=== PATIENT | female | born 2000 | race Asian ===

== ENCOUNTER 2019-06-10 15:31 | Inpatient (IN) ==
[2019-06-10 16:54] LABS: Basophils # (auto) 0.02 K/uL (0-0.2); Basophils % (auto) 0.4 %; Eosinophils # (auto) 0.04 K/uL (0-0.5); Eosinophils % (auto) 0.7 %; Hematocrit (blood only) 39.7 % (37-47); Hemoglobin 13.3 g/dL (12.0-16.0); Immature Granulocytes # (auto) 0.01 K/uL (0.00-0.02); Immature Granulocytes % (auto) 0.2 %; Lymphocytes # (auto) 1.88 K/uL (1.2-3.4); Lymphocytes % (auto) 33.5 %; Mean Corpuscular Hgb Conc 33.5 g/dL (32-36); Mean Corpuscular Volume 86.5 fL (80-100); Mean Platelet Volume 9.5 fL (7.4-10.4); Monocytes # (auto) 0.39 K/uL (0.11-0.59); Monocytes % (auto) 6.9 %; Neutrophils # (auto) 3.28 K/uL (1.4-6.5); Neutrophils % (auto) 58.3 %; Platelet Count 246 K/uL (130-400); RDW Coefficient of Variation 13.6 % (11.5-14.5); RDW Standard Deviation 42.9 fL (36.4-46.3); Red Blood Count 4.59 M/uL (4.2-5.4); White Blood Count 5.62 K/uL (4.8-10.8)
[2019-06-10 17:18] LABS: Albumin Level 3.9 gm/dl (3.4-5.0); Calcium 9.2 mg/dl (8.5-10.1); Creatinine Clr Calc Pharmacy 112.8 ml/min; Est GFR (African American) 127.7; Est GFR (Non-African American) 110.2
[2019-06-10 17:21] LABS: Acetaminophen < 2 ug/ml (10-30); Salicylate < 1.7 mg/dl (2.8-20)
[2019-06-10 17:29] LABS: Bilirubin,Total 0.3 mg/dl (0.2-1); Globulin 3.9 gm/dl (2.5-4.0); Thyroid Stimulating Hormone 0.647 uIu/ml (0.300-4.500); Total Protein 7.8 gm/dl (6.4-8.2)
[2019-06-10 17:52] LABS: Pregnancy Test, Serum Negative (Negative)
--- NOTE | 2019-06-10 17:55 | Emergency Department Note ---
Entered by Damian Harrell acting as a scribe for History of Present Illness General Chief complaint: Mental Health Evaluation Stated complaint: MHID Time Seen by Provider: 06/10/19 15:39 Source: patient and other (case making machine operator) Limitations: no limitations History of Present Illness Onset (ago): hour(s) ([employer]) Location: head Severity: similar to prior episodes Pain Consistency: + constant Quality: + other (suicidal ideations) Associated symptoms: + denies other symptoms (recent illnesses, injuries) The patient is a 18 y/o female who presents to the ED for a mental health evaluation. The case making machine operator notes the patient was referred to the ED by [facility] [employer]. The case making machine operator states CAPS states the patient feels depressed and has had suicidal ideations. The case making machine operator states CAPS states the patient tried to commit suicide in high school by taking a bunch of Advil. The case making machine operator states CAPS states the patient had a plan to cut herself. The patient states she has a history of anxiety and depression but states it is not diagnosed. She states her family is in [facility] and notes she has not seen them in over 4 months. She states she has never talked to a therapist in the past. She states she has used ecstasy, LSD, cocaine, and marijuana. She states she has recently used cocaine and marijuana and states she has used them socially. She states she drinks alcohol socially. She notes she has smoked tobacco but states she has not recently. She states she uses drugs whenever she goes to festivals or big events. She states her menstrual cycle was a week late recently, but she states she took a test and it was negative. The patient denies having recent injuries and illnesses. Home Medications Home Medications Medication Instructions Recorded Confirmed Type No Known Home Medications 06/10/19 06/10/19 History Allergies Allergy/AdvReac Type Severity Reaction Status Date / Time No Known Allergies Allergy Unverified 06/10/19 16:26 Past Med/Surg History Medical History Anxiety Depression Family History Other Family history non-contributory Social History Preferred Language: Romansh Communication Ability: Effective Multimedia Manager Required: No Beliefs That Will Affect Care: None Feels Safe at Home: Yes Smoking Status: Current some day smoker Tobacco Type: cigarettes and e- cigarettes ; Hx Substance Use: Yes substance use type: marijuana, crack/cocaine, club/millinery designer drugs and other Substance Use Type Other:: LSD Review of Systems See HPI for pertinent positives & negatives. and A total of 10 systems reviewed and were otherwise negative Physical Exam Vital Signs Vital Signs - 24 hr 06/10/19 16:00 Temperature 36.9 C Temperature Source Oral Pulse Rate 82 Pulse Rhythm Regular Pulse Strength Normal Respiratory Rate 16 Respiratory Effort / Characteristics Non-Labored Spontaneous Respiratory Depth Normal Respiratory Pattern Regular Blood Pressure 106/63 Blood Pressure Mean 77 Blood Pressure Position Sitting Pulse Oximetry 99 Oxygen Delivery Method Room Air Sepsis Recent Fever Within 48 Hours No Sepsis New/Unexplained Change in Mental Status No Sepsis Action Taken by Nursing No Action Required GENERAL: alert, well appearing, well nourished, no distress, non-toxic EYE EXAM: normal conjunctiva, PERRL and EOM's grossly intact OROPHARYNX: no exudate, no erythema, lips, buccal mucosa, and tongue normal and mucous membranes are moist NECK: supple, no nuchal rigidity, no adenopathy, non-tender LUNGS: Clear to auscultation. Normal chest wall mechanics, no w/r/r HEART: no murmurs, S1 normal and S2 normal ABDOMEN: abdomen soft, non-tender, normo-active bowel sounds, no masses, no rebound or guarding. BACK: Back is symmetrical on inspection and there is no deformity, no midline tenderness, no CVA tenderness. SKIN: no rashes and no bruising UPPER EXTREMITIES: upper extremities are grossly normal. FROM, nml pulses b/l. LOWER EXTREMITIES: No pitting edema. FROM, nml pulses b/l. NEURO EXAM: Normal sensorium, cranial nerves II-XII grossly intact, normal speech, no gross weakness of arms, no gross weakness of legs. PSYCH: Flat affect. Depression, anxiety, suicidal ideation. No hallucinations. Course Course 1557: Past medical records reviewed. The patient was evaluated in room A5. A complete history and physical exam was performed. 1735: Patient seen and evaluated by [facility] psychiatric case making machine operator. Patient willing to be admitted voluntarily. They will make referrals for disposition. 1800: The patient was signed out to Dr. Cardozo - Emergency Medicine. He will further manage the care of the patient. Administered Medications Hydroxyzine HCl (Vistaril) 50 mg PO HSZ PRN PRN Reason: Insomnia Stop: 07/10/19 20:57 Last Admin: 06/11/19 00:35 Dose: 50 mg Documented by: [id number] Discontinued Medications Escitalopram Oxalate (Lexapro Tab) 5 mg PO ONE ONE Stop: 06/11/19 10:42 Last Admin: 06/11/19 10:56 Dose: 5 mg Documented by: [id number] Medical Decision Making Differential Diagnosis Differential diagnoses considered include mood disorder, infection, hypoglycemia, electrolyte abnormalities, cardiac sources, intracerebral event, toxicologic, neurologic, as well as others. Medical Records Attestation: I reviewed the patient's medical records. Home Medications Current Medication List: was personally reviewed by me Laboratory Data Attestation: I reviewed the patient's lab results. Result diagrams: 06/10/19 16:41 06/10/19 16:41 Lab Results 06/10/19 06/10/19 06/10/19 Range/Units 16:41 16:41 16:41 WBC 5.62 (4.8-10.8) K/uL RBC 4.59 (4.2-5.4) M/uL Hgb 13.3 (12.0-16.0) g/dL Hct 39.7 (37-47) % MCV 86.5 (80-100) fL MCH 29.0 (25-34) pg MCHC 33.5 (32-36) g/dL RDW Std Deviation 42.9 (36.4-46.3) fL RDW Coeff of Radha 13.6 (11.5-14.5) % Plt Count 246 (130-400) K/uL MPV 9.5 (7.4-10.4) fL Immature Gran % (Auto) 0.2 % Neut % (Auto) 58.3 % Lymph % (Auto) 33.5 % Anderson % (Auto) 6.9 % Eos % (Auto) 0.7 % Baso % (Auto) 0.4 % Immature Gran # (Auto) 0.01 (0.00-0.02) K/uL Neut # (Auto) 3.28 (1.4-6.5) K/uL Lymph # (Auto) 1.88 (1.2-3.4) K/uL Anderson # (Auto) 0.39 (0.11-0.59) K/uL Eos # (Auto) 0.04 (0-0.5) K/uL Baso # (Auto) 0.02 (0-0.2) K/uL Sodium 137 (136-145) mmol/L Potassium 4.0 (3.5-5.1) mmol/L Chloride 106 (98-107) mmol/L Carbon Dioxide 27 (21-32) mmol/L Anion Gap 4.0 (3-11) BUN 14 (7-18) mg/dl Creatinine 0.78 (0.6-1.2) mg/dl Est Cr Clr Drug Dosing 112.8 ml/min Est GFR ( Amer) 127.7 Est GFR (Non-Af Amer) 110.2 BUN/Creatinine Ratio 18.0 (10-20) Glucose 82 (70-99) mg/dl Calcium 9.2 (8.5-10.1) mg/dl Total Bilirubin 0.3 (0.2-1) mg/dl AST 16 (15-37) U/L ALT 22 (12-78) U/L Alkaline Phosphatase 52 (45-117) U/L Total Protein 7.8 (6.4-8.2) gm/dl Albumin 3.9 (3.4-5.0) gm/dl Globulin 3.9 (2.5-4.0) gm/dl Albumin/Globulin Ratio 1.0 (0.9-2) 25-OH Vitamin D Total (20-100) ng/ml TSH 0.647 (0.300-4.500) uIu/ml HCG, Qual (Negative) Urine Color Urine Appearance (Clear) Urine pH (4.5-7.5) Ur Specific [place] (1.000-1.030) Urine Protein (Negative) Urine Glucose (UA) (Negative) Urine Ketones (Negative) Urine Blood (Negative) Urine Nitrite (Negative) Urine Bilirubin (Negative) Urine Urobilinogen (Negative) Ur Leukocyte Esterase (Negative) Salicylates < 1.7 L (2.8-20) mg/dl Urine Opiates Screen (Neg) Ur Methadone, Qual (Neg) Acetaminophen < 2 L (10-30) ug/ml Urine Barbiturates (Neg) Ur Phencyclidine (PCP) (Neg) U Amphetamin/Meth Scrn (Neg) MDMA (Ecstasy) Screen (Neg) U Benzodiazepines Scrn (Neg) Ur Cocaine Metabolite (Neg) U Marijuana (THC) Screen (Neg) Ethyl Alcohol mg/dL (0-3) mg/dl 06/10/19 06/10/19 06/10/19 Range/Units 16:41 16:41 16:41 WBC (4.8-10.8) K/uL RBC (4.2-5.4) M/uL Hgb (12.0-16.0) g/dL Hct (37-47) % MCV (80-100) fL MCH (25-34) pg MCHC (32-36) g/dL RDW Std Deviation (36.4-46.3) fL RDW Coeff of Radha (11.5-14.5) % Plt Count (130-400) K/uL MPV (7.4-10.4) fL Immature Gran % (Auto) % Neut % (Auto) % Lymph % (Auto) % Anderson % (Auto) % Eos % (Auto) % Baso % (Auto) % Immature Gran # (Auto) (0.00-0.02) K/uL Neut # (Auto) (1.4-6.5) K/uL Lymph # (Auto) (1.2-3.4) K/uL Anderson # (Auto) (0.11-0.59) K/uL Eos # (Auto) (0-0.5) K/uL Baso # (Auto) (0-0.2) K/uL Sodium (136-145) mmol/L Potassium (3.5-5.1) mmol/L Chloride (98-107) mmol/L Carbon Dioxide (21-32) mmol/L Anion Gap (3-11) BUN (7-18) mg/dl Creatinine (0.6-1.2) mg/dl Est Cr Clr Drug Dosing ml/min Est GFR ( Amer) Est GFR (Non-Af Amer) BUN/Creatinine Ratio (10-20) Glucose (70-99) mg/dl Calcium (8.5-10.1) mg/dl Total Bilirubin (0.2-1) mg/dl AST (15-37) U/L ALT (12-78) U/L Alkaline Phosphatase (45-117) U/L Total Protein (6.4-8.2) gm/dl Albumin (3.4-5.0) gm/dl Globulin (2.5-4.0) gm/dl Albumin/Globulin Ratio (0.9-2) 25-OH Vitamin D Total 23.5 (20-100) ng/ml TSH (0.300-4.500) uIu/ml HCG, Qual Negative (Negative) Urine Color Urine Appearance (Clear) Urine pH (4.5-7.5) Ur Specific [place] (1.000-1.030) Urine Protein (Negative) Urine Glucose (UA) (Negative) Urine Ketones (Negative) Urine Blood (Negative) Urine Nitrite (Negative) Urine Bilirubin (Negative) Urine Urobilinogen (Negative) Ur Leukocyte Esterase (Negative) Salicylates (2.8-20) mg/dl Urine Opiates Screen (Neg) Ur Methadone, Qual (Neg) Acetaminophen (10-30) ug/ml Urine Barbiturates (Neg) Ur Phencyclidine (PCP) (Neg) U Amphetamin/Meth Scrn (Neg) MDMA (Ecstasy) Screen (Neg) U Benzodiazepines Scrn (Neg) Ur Cocaine Metabolite (Neg) U Marijuana (THC) Screen (Neg) Ethyl Alcohol mg/dL < 3.0 (0-3) mg/dl 06/10/19 06/10/19 Range/Units 17:24 17:24 WBC (4.8-10.8) K/uL RBC (4.2-5.4) M/uL Hgb (12.0-16.0) g/dL Hct (37-47) % MCV (80-100) fL MCH (25-34) pg MCHC (32-36) g/dL RDW Std Deviation (36.4-46.3) fL RDW Coeff of Radha (11.5-14.5) % Plt Count (130-400) K/uL MPV (7.4-10.4) fL Immature Gran % (Auto) % Neut % (Auto) % Lymph % (Auto) % Anderson % (Auto) % Eos % (Auto) % Baso % (Auto) % Immature Gran # (Auto) (0.00-0.02) K/uL Neut # (Auto) (1.4-6.5) K/uL Lymph # (Auto) (1.2-3.4) K/uL Anderson # (Auto) (0.11-0.59) K/uL Eos # (Auto) (0-0.5) K/uL Baso # (Auto) (0-0.2) K/uL Sodium (136-145) mmol/L Potassium (3.5-5.1) mmol/L Chloride (98-107) mmol/L Carbon Dioxide (21-32) mmol/L Anion Gap (3-11) BUN (7-18) mg/dl Creatinine (0.6-1.2) mg/dl Est Cr Clr Drug Dosing ml/min Est GFR ( Amer) Est GFR (Non-Af Amer) BUN/Creatinine Ratio (10-20) Glucose (70-99) mg/dl Calcium (8.5-10.1) mg/dl Total Bilirubin (0.2-1) mg/dl AST (15-37) U/L ALT (12-78) U/L Alkaline Phosphatase (45-117) U/L Total Protein (6.4-8.2) gm/dl Albumin (3.4-5.0) gm/dl Globulin (2.5-4.0) gm/dl Albumin/Globulin Ratio (0.9-2) 25-OH Vitamin D Total (20-100) ng/ml TSH (0.300-4.500) uIu/ml HCG, Qual (Negative) Urine Color Yellow Urine Appearance Clear (Clear) Urine pH 6.0 (4.5-7.5) Ur Specific [place] 1.010 (1.000-1.030) Urine Protein Negative (Negative) Urine Glucose (UA) Negative (Negative) Urine Ketones Negative (Negative) Urine Blood Negative (Negative) Urine Nitrite Negative (Negative) Urine Bilirubin Negative (Negative) Urine Urobilinogen Negative (Negative) Ur Leukocyte Esterase Negative (Negative) Salicylates (2.8-20) mg/dl Urine Opiates Screen Neg (Neg) Ur Methadone, Qual Neg (Neg) Acetaminophen (10-30) ug/ml Urine Barbiturates Neg (Neg) Ur Phencyclidine (PCP) Neg (Neg) U Amphetamin/Meth Scrn Neg (Neg) MDMA (Ecstasy) Screen Neg (Neg) U Benzodiazepines Scrn Neg (Neg) Ur Cocaine Metabolite Neg (Neg) U Marijuana (THC) Screen Neg (Neg) Ethyl Alcohol mg/dL (0-3) mg/dl Blood Pressure Blood Pressure Findings: Normal blood pressure Blood Pressure Disposition: did not require urgent referral MDM Narrative Pt signed out awaiting disposition. Pt here voluntarily and I feel would benefit from inpatient psych treatment at this time. Pt with no close support or established resources. Impression & Plan Depression, Anxiety, Suicidal ideation, Substance abuse Discharge Plan Visit Data *Final* Discharge Date/Time: 06/10/19 20:43 Chief Complaint: Mental Health Evaluation Stated Complaint: MHID ED Provider: Presley Cardozo Discharge Problem: Depression, Anxiety, Suicidal ideation, Substance abuse Patient Disposition: Admitted As Inpatient Discharge Instructions Interventions: ED Discharge Assessment Last Done: 06/10/19 20:43 Discharge Problem: Depression Qualifiers: Depression Type: major depressive disorder Major depression recurrence: recurrent Active/Remission status: currently active Major depression episode severity: moderate Qualified Code(s): F33.1 - Major depressive disorder, recurrent, moderate The axelibe's documentation has been prepared under my direction and personally reviewed by me in its entirety. I confirm that the note above accurately reflects all work, treatment, procedures, and medical decision making performed by me.
[2019-06-10 18:23] LABS: Appearance Urine Clear (Clear); Bilirubin Urine Negative (Negative); Blood Urine Negative (Negative); Color Urine Yellow; Glucose Urine UA Negative (Negative); Ketones Urine Negative (Negative); Leukocyte Esterase Urine Negative (Negative); Nitrite Urine Negative (Negative); Protein Urine Negative (Negative); Urobilinogen Urine Negative (Negative)
[2019-06-10 18:44] LABS: Amphetamines+Metham, Urine Neg (Neg); Barbiturates, Urine Neg (Neg); Benzodiazepine, Urine Neg (Neg); Cocaine, Urine Neg (Neg); MDMA (Ecstacy), Urine Neg (Neg); Methadone, Urine Neg (Neg); Opiate, Urine Neg (Neg); Phencyclidine, Urine Neg (Neg)
--- NOTE | 2019-06-10 20:16 | Emergency Department Note ---
ED Visit Note Received patient in signout. History and physical verified by me. Patient has been admitted to [facility]. . : Depression Qualifiers: Depression Type: major depressive disorder Major depression recurrence: recurrent Active/Remission status: currently active Major depression episode severity: moderate Qualified Code(s): F33.1 - Major depressive disorder, recurrent, moderate
[2019-06-10] MEDS ORDERED: MAGNESIUM HYDROXIDE SUSP 30 ML UDC PO PRN (20:58)
[2019-06-10] MEDS ORDERED: ALUMINUM/MAGNESIUM SUSP 30 ML UDC PO PRN (20:58)
[2019-06-10] MEDS ORDERED: ACETAMINOPHEN 325 MG TAB PO PRN (20:58)
[2019-06-10] MEDS ORDERED: SODIUM CHLORIDE 0.65% NA SOLN 45 ML (OCEAN) PRN (20:58)
[2019-06-10] MEDS ORDERED: BISMUTH SUBSALICYLATE PER ML OMNICELL CHARGE PO PRN (20:58)
[2019-06-11] MEDS ORDERED: ESCITALOPRAM OXALATE 10 MG TAB PO ONE (10:41)
--- NOTE | 2019-06-11 13:02 | History & Physical ---
Date of Service June 11, 2019 Impression / Recommendations Impression 18 yo female with a history of SIB and impulsive suicidal gesture in high school (also some restricting and later bingeing around transition to college) presents with recurrent SI and recent SIB. Hospitalization was recommended given inability to safety plan and limited social supports locally given international student. (1) Depression: The patient was admitted to the [facility] ([facility] mental health unit) on q15 min checks (behavioral with suicide precautions) for safety. The patient will participate in group, recreational, and milieu therapies and will b e offered additional individual and family sessions as clinically appropriate. Risks/benefits/alternatives reviewed re: antidepressants for the treatment of depression. Discussion included but was not limited to FDA black box warnings re: suicidality. The patient agreed to a trial of Lexapro 5 mg today with plan to continue and/or titrate tomorrow based on tolerability. Active/Remission status: currently active Depression Type: major depressive disorder Major depression episode severity: moderate Major depression recurrence: recurrent Qualified Code(s): F33.1 - Major depressive disorder, recurrent, moderate Inventory Assets Strengths: intelligent, sought care at [facility] Needs: medication trial, family meeting Risk Factors Assessment Do You Have Access To A Gun?: No Previous Attempt; Didn't Tell Anyone: Yes Previous Psychiatric Hospitalization: No Protective Factors Assessment : No Employed: No Psychiatric History Identifying Data ATUL AYALA is a 18-year-old F, [employer] sophomore lives off campus, has a history of impulsive OD attempt in high school, and was admitted on 06/10/19 20:58 on a 201 voluntary commitment for SI and recent SIB. Chief Complaint "I didn't know how to talk to my parents about how I was feeling". History of Present Illness Reports intermittent depressive symptoms since high school, recurred on adjustment to college life and particularly worse since March. Having non- specific SI without a plan for several weeks, mood dropped lower following an argument with mother on the phone three days ago. At that time she made multiple horizontal (1-2 in) scratches on her left forearm (skin red but intact). She called [facility] for urgent assessment and on 2nd visit was referred to ED, police accompanied as standard procedure. She continues to expressed passive SI, appears depressed, endorses hopelessness and helplessness with regards to her mood symptoms and has very little support as parents are in [facility] and her boyfriend is in [place]. She did attend classes this week but feels symptoms impacted her performance last semester. Sleep and appetite sound relatively intact. She denies any periods of elevated or irritable mood that would suggest chichi. Past Psychiatric History Previous Psych History: none Current Psychiatric Diagnosis: MDD Outpatient Services: establishing at [facility] for therapy, scheduled for a psych eval with Dr. Messina next week. Previous Psych Admissions: none Do You Have Access To A Gun?: No History of Previous Suicide Attempt: Yes Describe Attempts in the Past: In high school - OD on Advil. Stated it was very impulsive, no treatme Past Medication Trials: none Past Head Trauma/Neuro History History of Concussion/Seizure: No Allergies Allergy/AdvReac Type Severity Reaction Status Date / Time No Known Allergies Allergy Unverified 06/10/19 16:26 Home Medications Home Medications Medication Instructions Recorded Confirmed Type No Known Home Medications 06/10/19 06/10/19 History Family History Family History of: None Alcohol History Hx of Alcohol Use Over the Past 12 Months: Yes AUDIT Total Score: 6 Smoking Use Have You Smoked or Used Tobacco Products in the Last 30 Days: Yes tobacco type: cigarettes and e-cigarettes Smoking Status: Current some day smoker Substance History Hx of Prescription Med Misuse Over the Past 12 Months: No Hx of Over the Counter Med Misuse Over the Past 12 Months: No Hx of Inhalent Misuse Over the Past 12 Months: No Hx of Organic Substance Use Over the Past 12 Months: Yes (MJ at a concert, denied regular use) Hx of Illegal Substances/Street Drug Use Over Past 12 Months: Yes (has used MMDA at a concert, denies regular use) Problems as a Result of Past Substance Use: None Identified Personal History Living Arrangements: Apartment Born In: [place] Childhood: only child, came to [facility] in high school (parents back and forth to [place] around that time), attended high school in [facility]. Highest Grade Completed: Some College Highest Grade Completed Comment: [employer] Sophomore - Psychology Employment Status: Student Marital Status: Single Number Of Children: 0 Beliefs That Will Affect Care: None Current Legal Problems: No Hx Legal Problems: No Hx Traumatic Life Events: No Patient History Medical History Anxiety Depression Family History Other Family history non-contributory Social History Preferred Language: Setswana Communication Ability: Effective Lead Performance Support Analyst Required: No Beliefs That Will Affect Care: None Feels Safe at Home: Yes Smoking Status: Current some day smoker Tobacco Type: cigarettes and e- cigarettes ; Hx Substance Use: Yes substance use type: marijuana, crack/cocaine, club/social media designer drugs and other Substance Use Type Other:: LSD Review of Systems Review of Systems: All systems reviewed & are unremarkable except as noted in HPI & below Physical Exam Psychiatric: A physical exam was performed in the ED by Dr. Stacy for the purposes of medical clearance. I accept that physical as correct and adequate for the purposes of the inpatient physical exam. Orientation: alert Apperance: appropriately dressed Eye Contact: good eye contact Motor Behavior: steady gait and station Speech: normal rate/rhythm/volume of speech Affect: + depressed affect Mood: + depressed mood Thought Process: goal directed thought process Thought Content: reality based without delusions passive SI, no intent or plan on unit Homicidal Thoughts: denies homicidal thoughts Hallucinations: no auditory hallucinations and no visual hallucinations Cognition: attention grossly intact and language grossly intact Estimated Intelligence: consistent with education level Insight: + limited insight Judgement: + limited judgement Vital Signs (Past 24 Hours): Last Vital Signs Temp 36.7 C 06/11/19 06:43 Pulse 78 06/11/19 06:44 Resp 18 06/11/19 06:43 BP 112/75 06/11/19 06:44 Pulse Ox 98 06/10/19 21:04 Results & Data Laboratory Results Laboratory Results - last 24 hr 06/10/19 06/10/19 06/10/19 16:41 16:41 16:41 WBC 5.62 RBC 4.59 Hgb 13.3 Hct 39.7 MCV 86.5 MCH 29.0 MCHC 33.5 RDW Std Deviation 42.9 RDW Coeff of Radha 13.6 Plt Count 246 MPV 9.5 Immature Gran % (Auto) 0.2 Neut % (Auto) 58.3 Lymph % (Auto) 33.5 Haines % (Auto) 6.9 Eos % (Auto) 0.7 Baso % (Auto) 0.4 Immature Gran # (Auto) 0.01 Neut # (Auto) 3.28 Lymph # (Auto) 1.88 Haines # (Auto) 0.39 Eos # (Auto) 0.04 Baso # (Auto) 0.02 Sodium 137 Potassium 4.0 Chloride 106 Carbon Dioxide 27 Anion Gap 4.0 BUN 14 Creatinine 0.78 Est Cr Clr Drug Dosing 112.8 Est GFR ( Amer) 127.7 Est GFR (Non-Af Amer) 110.2 BUN/Creatinine Ratio 18.0 Glucose 82 Calcium 9.2 Total Bilirubin 0.3 AST 16 ALT 22 Alkaline Phosphatase 52 Total Protein 7.8 Albumin 3.9 Globulin 3.9 Albumin/Globulin Ratio 1.0 TSH 0.647 HCG, Qual Urine Color Urine Appearance Urine pH Ur Specific [place] Urine Protein Urine Glucose (UA) Urine Ketones Urine Blood Urine Nitrite Urine Bilirubin Urine Urobilinogen Ur Leukocyte Esterase Salicylates < 1.7 L Urine Opiates Screen Ur Methadone, Qual Acetaminophen < 2 L Urine Barbiturates Ur Phencyclidine (PCP) U Amphetamin/Meth Scrn MDMA (Ecstasy) Screen U Benzodiazepines Scrn Ur Cocaine Metabolite U Marijuana (THC) Screen Ethyl Alcohol mg/dL 06/10/19 06/10/19 06/10/19 16:41 16:41 17:24 WBC RBC Hgb Hct MCV MCH MCHC RDW Std Deviation RDW Coeff of Radha Plt Count MPV Immature Gran % (Auto) Neut % (Auto) Lymph % (Auto) Haines % (Auto) Eos % (Auto) Baso % (Auto) Immature Gran # (Auto) Neut # (Auto) Lymph # (Auto) Haines # (Auto) Eos # (Auto) Baso # (Auto) Sodium Potassium Chloride Carbon Dioxide Anion Gap BUN Creatinine Est Cr Clr Drug Dosing Est GFR ( Amer) Est GFR (Non-Af Amer) BUN/Creatinine Ratio Glucose Calcium Total Bilirubin AST ALT Alkaline Phosphatase Total Protein Albumin Globulin Albumin/Globulin Ratio TSH HCG, Qual Negative Urine Color Urine Appearance Urine pH Ur Specific [place] Urine Protein Urine Glucose (UA) Urine Ketones Urine Blood Urine Nitrite Urine Bilirubin Urine Urobilinogen Ur Leukocyte Esterase Salicylates Urine Opiates Screen Neg Ur Methadone, Qual Neg Acetaminophen Urine Barbiturates Neg Ur Phencyclidine (PCP) Neg U Amphetamin/Meth Scrn Neg MDMA (Ecstasy) Screen Neg U Benzodiazepines Scrn Neg Ur Cocaine Metabolite Neg U Marijuana (THC) Screen Neg Ethyl Alcohol mg/dL < 3.0 06/10/19 17:24 WBC RBC Hgb Hct MCV MCH MCHC RDW Std Deviation RDW Coeff of Radha Plt Count MPV Immature Gran % (Auto) Neut % (Auto) Lymph % (Auto) Haines % (Auto) Eos % (Auto) Baso % (Auto) Immature Gran # (Auto) Neut # (Auto) Lymph # (Auto) Haines # (Auto) Eos # (Auto) Baso # (Auto) Sodium Potassium Chloride Carbon Dioxide Anion Gap BUN Creatinine Est Cr Clr Drug Dosing Est GFR ( Amer) Est GFR (Non-Af Amer) BUN/Creatinine Ratio Glucose Calcium Total Bilirubin AST ALT Alkaline Phosphatase Total Protein Albumin Globulin Albumin/Globulin Ratio TSH HCG, Qual Urine Color Yellow Urine Appearance Clear Urine pH 6.0 Ur Specific [place] 1.010 Urine Protein Negative Urine Glucose (UA) Negative Urine Ketones Negative Urine Blood Negative Urine Nitrite Negative Urine Bilirubin Negative Urine Urobilinogen Negative Ur Leukocyte Esterase Negative Salicylates Urine Opiates Screen Ur Methadone, Qual Acetaminophen Urine Barbiturates Ur Phencyclidine (PCP) U Amphetamin/Meth Scrn MDMA (Ecstasy) Screen U Benzodiazepines Scrn Ur Cocaine Metabolite U Marijuana (THC) Screen Ethyl Alcohol mg/dL Current Inpatient Medications Current Inpatient Medications: Current Inpatient Medications Acetaminophen (Tylenol) 650 mg PO Q4H PRN PRN Reason: Headache or Minor Fever Stop: 07/10/19 20:57 Al Hydrox/Mg Hydrox/Simethicone (Maalox) 30 ml PO Q4H PRN PRN Reason: GI Upset Stop: 07/10/19 20:57 Bismuth Subsalicylate (Kaopectate) 15 ml PO PRN PRN PRN Reason: Loose Stool Stop: 07/10/19 20:57 Hydroxyzine HCl (Vistaril) 50 mg PO HSZ PRN PRN Reason: Insomnia Stop: 07/10/19 20:57 Last Admin: 06/11/19 00:35 Dose: 50 mg Documented by: Hydroxyzine HCl (Vistaril) 25 mg PO Q4H PRN PRN Reason: Anxiety Stop: 07/10/19 20:57 Magnesium Hydroxide (Milk Of Magnesia) 30 ml PO DAILY PRN PRN Reason: Constipation Stop: 07/10/19 20:57 Sodium Chloride ([place] Nasal) 1 - 2 sprays NA PRN PRN PRN Reason: Nasal Dryness/Congestion Stop: 07/10/19 20:57
[2019-06-12] MEDS: ESCITALOPRAM OXALATE 10 MG TAB PO SCH (11:07)
--- NOTE | 2019-06-12 11:20 | Psychiatric Progress Note ---
Date of Service June 12, 2019 Impression / Recommendations Impression 18 yo female with a history of SIB and impulsive suicidal gesture in high school (also some restricting and later bingeing around transition to college) presents with recurrent SI and recent SIB. Hospitalization was recommended given inability to safety plan and limited social supports locally--improving, tolerating Lexapro (1) Depression: 06/11--The patient was admitted to the [facility] ([facility] mental health unit) on q15 min checks (behavioral with suicide precautions) for safety. The patient will participate in group, recreational, and milieu therapies and will be offered additional individual and family sessions as clinically appropriate. Risks/benefits/alternatives reviewed re: antidepressants for the treatment of depression. Discussion included but was not limited to FDA black box warnings re: suicidality. The patient agreed to a trial of Lexapro 5 mg today with plan to continue and/or titrate tomorrow based on tolerability. 06/12--titrate lexapro 10 mg. Inventory Assets Strengths: intelligent, sought care at [facility] Needs: medication trial, family meeting Risk Factors Assessment Do You Have Access To A Gun?: No Previous Attempt; Didn't Tell Anyone: Yes Previous Psychiatric Hospitalization: No Protective Factors Assessment : No Employed: No Interval History Chief Complaint "It was a mistake for me to come here". Review of Systems Sleep Information Total Hours of Sleep: 6 Meal Information Percent Meal Consumed - Breakfast: 100 Percent Meal Consumed - Lunch: 75 Percent Meal Consumed - Dinner: 100 Nutrition Comment: pt was sleeping Subjective Subjective Patient was seen & assessed and interval progress reviewed with nursing. States that she missed campbell and felt she was actually improving with social anxiety. Today confirms that she does not identify Hungarian and states she was born in [place], still says "moved around alot", including some period of time in [place]. Tolerated first dose of Lexapro and desires to continue. Now states that since childhood she had brief periods of feeling less responsive to things. Feels it's gotten worse during her depression. Denies that it is in response to stressors or around SIB so doesn't sound dissociative. Social anxiety is that she feels unsafe on some level with her own emotions if leaves her apartment to go to gym or class but fine once she is there. had family session by phone, feels parents were supportive. Requesting to leave soon and directed to safety plan. Physical Exam Psychiatric Orientation: alert Apperance: appropriately dressed Eye Contact: good eye contact Motor Behavior: steady gait and station Speech: normal rate/rhythm/volume of speech Affect: + depressed affect Mood: + depressed mood Thought Process: goal directed thought process Thought Content: reality based without delusions Suicidal Thoughts: denies suicidal thoughts Homicidal Thoughts: denies homicidal thoughts Hallucinations: no auditory hallucinations and no visual hallucinations Cognition: attention grossly intact and language grossly intact Estimated Intelligence: consistent with education level Insight: + limited insight Judgement: + limited judgement Vital Signs (Past 24 Hours) Last Vital Signs Temp 36.7 C 06/12/19 06:49 Pulse 82 06/12/19 06:50 Resp 18 06/12/19 06:49 BP 101/65 06/12/19 06:50 Pulse Ox 98 06/10/19 21:04 Results & Data Laboratory Results Laboratory Results - last 24 hr 06/10/19 16:41 25-OH Vitamin D Total 23.5 Current Inpatient Medications Current Inpatient Medications: Current Inpatient Medications Acetaminophen (Tylenol) 650 mg PO Q4H PRN PRN Reason: Headache or Minor Fever Stop: 07/10/19 20:57 Al Hydrox/Mg Hydrox/Simethicone (Maalox) 30 ml PO Q4H PRN PRN Reason: GI Upset Stop: 07/10/19 20:57 Bismuth Subsalicylate (Kaopectate) 15 ml PO PRN PRN PRN Reason: Loose Stool Stop: 07/10/19 20:57 Escitalopram Oxalate (Lexapro Tab) 10 mg PO QAM GILLIAN Stop: 07/12/19 10:14 Last Admin: 06/12/19 11:07 Dose: 10 mg Documented by: Hydroxyzine HCl (Vistaril) 50 mg PO HSZ PRN PRN Reason: Insomnia Stop: 07/10/19 20:57 Last Admin: 06/11/19 00:35 Dose: 50 mg Documented by: Hydroxyzine HCl (Vistaril) 25 mg PO Q4H PRN PRN Reason: Anxiety Stop: 07/10/19 20:57 Magnesium Hydroxide (Milk Of Magnesia) 30 ml PO DAILY PRN PRN Reason: Constipation Stop: 07/10/19 20:57 Sodium Chloride ([place] Nasal) 1 - 2 sprays NA PRN PRN PRN Reason: Nasal Dryness/Congestion Stop: 07/10/19 20:57 Mental Health & Subst Abuse Tx Psychiatrist Name of Psychiatrist: DARYA Messina Psychiatrist's Date of Appointment with Psychiatrist: 06/16/19 Time of Appointment with Psychiatrist: 12:40 p.m. Psychiatric Appointment Comment: [facility] Therapist Name of Therapist: DARYA Palm Therapist's Date of Therapist Appointment: 06/23/19 Time of Therapist Appointment: 1:00 p.m. Therapy Appointment Comment: [facility] Name of Medical Grade Shoemaker: DARYA Kiser Phone Number for [facility]: [phone] Case Management Appointment Comment: [facility] Post Discharge Appointments Primary Care Physician Name Of Family Doctor: [facility] Primary Care Time of Appointment with PCP: Please follow up as needed Provider Appointment Comment: [facility] Contact Information Discharge Discharge Address: [address] [place] [address], [place] [address] (1) Depression Active/Remission status: currently active Depression Type: major depressive disorder Major depression episode severity: moderate Major depression recurrence: recurrent Qualified Code(s): F33.1 - Major depressive disorder, recurrent, moderate
--- NOTE | 2019-06-13 09:12 | Discharge Summary ---
Date of Service June 13, 2019 History of Present Illness Reports intermittent depressive symptoms since high school, recurred on adjustment to college life and particularly worse since March. Having non- specific SI without a plan for several weeks, mood dropped lower following an argument with mother on the phone three days ago. At that time she made multiple horizontal (1-2 in) scratches on her left forearm (skin red but intact). She called [facility] for urgent assessment and on 2nd visit was referred to ED, police accompanied as standard procedure. She continues to expressed passive SI, appears depressed, endorses hopelessness and helplessness with regards to her mood symptoms and has very little support as parents are in [facility] and her boyfriend is in [place]. She did attend classes this week but feels symptoms impacted her performance last semester. Sleep and appetite sound relatively inta ct. She denies any periods of elevated or irritable mood that would suggest chichi. Physical Exam Psychiatric Orientation: alert, oriented x 3 and cooperative (and pleasant) Apperance: appropriately dressed, appropriately groomed and appeared stated age Eye Contact: good eye contact Motor Behavior: steady gait and station and no abnormal motor movements Speech: normal rate/rhythm/volume of speech Affect: euthymic affect and mood congruent with affect Mood: no depressed mood ("good") Thought Process: goal directed thought process, linear/logical thought process and clear/coherent thought process Thought Content: reality based without delusions; no hopelessness and no worthlessness Suicidal Thoughts: denies suicidal thoughts, denies suicidal plan and denies suicidal intent Homicidal Thoughts: denies homicidal thoughts Hallucinations: no auditory hallucinations and no visual hallucinations Cognition: recent memory grossly intact, attention grossly intact and language grossly intact Insight: good insight Judgement: good judgement Vital Signs (Past 24 Hours) Last Vital Signs Temp 36.6 C 06/13/19 06:48 Pulse 66 06/13/19 06:48 Resp 18 06/13/19 06:48 BP 120/78 06/13/19 06:48 Pulse Ox 98 06/10/19 21:04 Principal Diagnosis - Major depressive disorder, recurrent, moderate Psychiatric Data 18-year-old female admitted voluntarily for inpatient psychiatric treatment after presenting to the ED for mental health evaluation upon recommendation from her therapist at [facility]. Pt admitted to a history of SIB and and impulsive suicidal gesture in high school, and presented to [facility] with reports of recurrent SI and recent episode of self-harm. Hospitalization was offered, and patient was willing for inpatient treatment. It was reported that exacerbation of depressive symptoms and suicidal ideation was in the context of an argument occurring with the patient's mother over the phone. Pt has limited local supports, but is hopeful to finish the semester before considering moving to be closer to her sister in [place]. Pt was agreeable with initiation of escitalopram after discussion of risks and benefits. She was started on 5mg daily, and titrated to 10mg qAM by the time of discharge. Pt did admit to initial concern that the medication may be mildly sedating. Educated that this will likely improve with continued adjustment to the medication, but that patient could also begin taking the medication at bedtime if necessary. Over the course of the patient's admission, she verbalized improvement in mood and resolution of SI. She engaged in group and recreational programming and had phone calls with several family members. Pt completed a safety plan and was future oriented in conversations. Based on review of patient's case and their current presentation, risk of harm to self is no longer perceived to be acute. Management of symptoms on an outpatient basis seems the most appropriate and least restrictive setting. Pt seems appropriate for discharge with recommendation for consistent follow-up with outpatient psychiatric prescriber and therapist through [facility]. Pt verbalized understanding of discharge plan reviewed and is agreeable with plan to be discharged home today. Day of Discharge Assessment Patient's case was reviewed and discussed during treatment team. Staff report the patient was pleased to have had a positive interaction with her sister over the phone this weekend. Patient is continued to attend group programming, it is interacting appropriately with peers. Patient rated her mood a 9.5/10 and "happy" last evening. Patient was seen today to assess readiness for discharge. The patient states that she is feeling "good, I think that I am leaving today which is exciting." Patient gives this provider some insight as to precipitating factors for admission, and is able to verbalize multiple ways in which the stressors have been addressed during her hospitalization. Patient states that she had recently completed her safety plan, and was appreciative of the additional insight as to ways she can monitor her mood. Patient does state that she feels comfortable utilizing her safety plan, and has no concerns about the idea of returning home today. Patient admits to resolution of suicidal ideation, and has had several pleasant interactions with both her parents and her sister over the phone. Patient does admit that her boyfriend is supportive; however, "he just does not understand mental health, and it gets tough having to tell him what I need all the time." We reviewed the importance of communication in these situations, especially being able to discuss ways her boyfriend can be supportive when the patient is feeling healthy and can better explain her warning signs and needs when it comes to support. Patient states that she continues to tolerate the initiation of escitalopram, but did admit to some drowsiness yesterday morning after receiving the medication. Patient was encouraged to continue to monitor for fatigue that may be related to the medication, though it is most likely this will continue to improve as she stays on the medication. We did discuss the possibility of moving the dosing to the evening if sedation should continue. Patient verbalized understanding of these instructions. Patient admits to significant improvement in mood and denies safety concerns related to discharge home today. Patient is able to verbalize multiple aspects of her safety plan, and is future oriented during conversation. Patient is requesting discharge home today. Discharge plan was reviewed, patient verbalized understanding. She verbalizes feeling as though treatment goals have been met during this admission, and remains agreeable with ongoing outpatient psychiatric follow-up. ROS: Constitutional: reports mild fatigue Cardiovascular: denied Respiratory: denied Gastrointestinal: denied Neurological: denied Psychiatric: denies symptoms other than stated above Total of at least 10 systems reviewed, pertinent positives as above and in HPI. Transition of Care Transition Of Care Record: was reviewed with the patient Advance Directives Advance Directives Information Provided: Yes Advance Directives: No Mental Health Advance Directive: No Advance Directives on File: No Living Will: No Power of Electrical Line Mechanic: No Advance Directives Reason:: Declines as Mental Health Visit. Risk Factors Assessment Presenting risk factors reviewed on discharge. Precipitating stressors mitigated by: admission for inpatient psychiatric observation and treatment, initiation of medications to target presenting symptoms, attendance of therapeutic treatment groups, development of healthy and effective coping strategies, involvement of outpatient supports, completion of a safety plan, discussion regarding substance abuse and effects on mental health diagnoses, and education on diagnoses. Pt has demonstrated improvement in condition with regard to improvement in mood, resolution of SI, involvement out outpatient supports, arrangement of psychiatric aftercare services. At this time, patient is requesting discharge and is no longer considered to be at acute risk of harm to herself. Pt will be discharged with recommendation for ongoing outpatient psychiatric treatment. Male: No Do You Have Access To A Gun?: No Health Problems: No Mental Health Diagnoses: Yes Previous Attempt; Didn't Tell Anyone: Yes Previous Psychiatric Hospitalization: No Protective Factors Assessment : No Employed: No Tobacco Cessation at Discharge Tobacco Cessation Medication Prescribed at Discharge: Not Applicable/Non-Smoker Total Time Total Time Spent: Greater Than 30 Minutes Total Time Includes: Examination of the patient, Discharge Planning, Medication Reconciliation and Communication with other providers Discharge Data Lab Results 06/10/19 06/10/19 06/10/19 16:41 16:41 16:41 WBC 5.62 RBC 4.59 Hgb 13.3 Hct 39.7 MCV 86.5 MCH 29.0 MCHC 33.5 RDW Std Deviation 42.9 RDW Coeff of Radha 13.6 Plt Count 246 MPV 9.5 Immature Gran % (Auto) 0.2 Neut % (Auto) 58.3 Lymph % (Auto) 33.5 [place] % (Auto) 6.9 Eos % (Auto) 0.7 Baso % (Auto) 0.4 Immature Gran # (Auto) 0.01 Neut # (Auto) 3.28 Lymph # (Auto) 1.88 [place] # (Auto) 0.39 Eos # (Auto) 0.04 Baso # (Auto) 0.02 Sodium 137 Potassium 4.0 Chloride 106 Carbon Dioxide 27 Anion Gap 4.0 BUN 14 Creatinine 0.78 Est Cr Clr Drug Dosing 112.8 Est GFR ( Amer) 127.7 Est GFR (Non-Af Amer) 110.2 BUN/Creatinine Ratio 18.0 Glucose 82 Calcium 9.2 Total Bilirubin 0.3 AST 16 ALT 22 Alkaline Phosphatase 52 Total Protein 7.8 Albumin 3.9 Globulin 3.9 Albumin/Globulin Ratio 1.0 25-OH Vitamin D Total TSH 0.647 HCG, Qual Urine Color Urine Appearance Urine pH Ur Specific Shell Urine Protein Urine Glucose (UA) Urine Ketones Urine Blood Urine Nitrite Urine Bilirubin Urine Urobilinogen Ur Leukocyte Esterase Salicylates < 1.7 L Urine Opiates Screen Ur Methadone, Qual Acetaminophen < 2 L Urine Barbiturates Ur Phencyclidine (PCP) U Amphetamin/Meth Scrn MDMA (Ecstasy) Screen U Benzodiazepines Scrn Ur Cocaine Metabolite U Marijuana (THC) Screen Ethyl Alcohol mg/dL 06/10/19 06/10/19 06/10/19 16:41 16:41 16:41 WBC RBC Hgb Hct MCV MCH MCHC RDW Std Deviation RDW Coeff of Radha Plt Count MPV Immature Gran % (Auto) Neut % (Auto) Lymph % (Auto) [place] % (Auto) Eos % (Auto) Baso % (Auto) Immature Gran # (Auto) Neut # (Auto) Lymph # (Auto) [place] # (Auto) Eos # (Auto) Baso # (Auto) Sodium Potassium Chloride Carbon Dioxide Anion Gap BUN Creatinine Est Cr Clr Drug Dosing Est GFR ( Amer) Est GFR (Non-Af Amer) BUN/Creatinine Ratio Glucose Calcium Total Bilirubin AST ALT Alkaline Phosphatase Total Protein Albumin Globulin Albumin/Globulin Ratio 25-OH Vitamin D Total 23.5 TSH HCG, Qual Negative Urine Color Urine Appearance Urine pH Ur Specific Shell Urine Protein Urine Glucose (UA) Urine Ketones Urine Blood Urine Nitrite Urine Bilirubin Urine Urobilinogen Ur Leukocyte Esterase Salicylates Urine Opiates Screen Ur Methadone, Qual Acetaminophen Urine Barbiturates Ur Phencyclidine (PCP) U Amphetamin/Meth Scrn MDMA (Ecstasy) Screen U Benzodiazepines Scrn Ur Cocaine Metabolite U Marijuana (THC) Screen Ethyl Alcohol mg/dL < 3.0 06/10/19 06/10/19 17:24 17:24 WBC RBC Hgb Hct MCV MCH MCHC RDW Std Deviation RDW Coeff of Radha Plt Count MPV Immature Gran % (Auto) Neut % (Auto) Lymph % (Auto) [place] % (Auto) Eos % (Auto) Baso % (Auto) Immature Gran # (Auto) Neut # (Auto) Lymph # (Auto) [place] # (Auto) Eos # (Auto) Baso # (Auto) Sodium Potassium Chloride Carbon Dioxide Anion Gap BUN Creatinine Est Cr Clr Drug Dosing Est GFR ( Amer) Est GFR (Non-Af Amer) BUN/Creatinine Ratio Glucose Calcium Total Bilirubin AST ALT Alkaline Phosphatase Total Protein Albumin Globulin Albumin/Globulin Ratio 25-OH Vitamin D Total TSH HCG, Qual Urine Color Yellow Urine Appearance Clear Urine pH 6.0 Ur Specific Shell 1.010 Urine Protein Negative Urine Glucose (UA) Negative Urine Ketones Negative Urine Blood Negative Urine Nitrite Negative Urine Bilirubin Negative Urine Urobilinogen Negative Ur Leukocyte Esterase Negative Salicylates Urine Opiates Screen Neg Ur Methadone, Qual Neg Acetaminophen Urine Barbiturates Neg Ur Phencyclidine (PCP) Neg U Amphetamin/Meth Scrn Neg MDMA (Ecstasy) Screen Neg U Benzodiazepines Scrn Neg Ur Cocaine Metabolite Neg U Marijuana (THC) Screen Neg Ethyl Alcohol mg/dL Hospital Course (1) Depression: 06/11--The patient was admitted to the [facility] unit) on q15 min checks (behavioral with suicide precautions) for safety. The patient will participate in group, recreational, and milieu therapies and will be offered additional individual and family sessions as clinically appropriate. Risks/benefits/alternatives reviewed re: antidepressants for the treatment of depression. Discussion included but was not limited to FDA black box warnings re: suicidality. The patient agreed to a trial of Lexapro 5 mg today with plan to continue and/or titrate tomorrow based on tolerability. 06/12--titrate lexapro 10 mg. Mental Health & Subst Abuse Tx Psychiatrist Name of Psychiatrist: DARYA Messina Psychiatrist's Date of Appointment with Psychiatrist: 06/16/19 Time of Appointment with Psychiatrist: 12:40 p.m. Psychiatric Appointment Comment: [facility] Therapist Name of Therapist: DARYA Palm Therapist's Date of Therapist Appointment: 06/23/19 Time of Therapist Appointment: 1:00 p.m. Therapy Appointment Comment: [facility] Rip Saw Operator Name of Rip Saw Operator: DARYA Kiser Phone Number for Rip Saw Operator: [phone] Case Management Appointment Comment: Student [facility] Post Discharge Appointments Primary Care Physician Name Of Family Doctor: [facility] Primary Care Time of Appointment with PCP: Please follow up as needed Provider Appointment Comment: [facility] Smoking Cessation Counseling Tobacco Cessation Medication Prescribed at Discharge: Not Applicable/Non-Smoker Other #1: Name of Aftercare Appointment: DARYA Stevenson Phone Number of Aftercare Appointment: [phone] Date of Aftercare Appointment: 06/13/19 Time of Aftercare Appointment: 12:00 p.m. Aftercare Appointment Comment: [facility] #2: Name of Aftercare Appointment: [facility] Advocacy Phone Number of Aftercare Appointment: [phone] Aftercare Appointment Comment: [address] [place] [address] Contact Information Discharge Discharge [address]: [address] [place] [address], [place] [address], [place] [address] Discharge Plan Discharge Items Patient Disposition: Home - Self-Care Reason For Visit: MDD Discharge Diagnosis: - Major depressive disorder Condition on Discharge: Good Activity: Resume your previous activity Non-emergency contact: Primary Care Provider, Psychiatrist and Therapist Call non-emergency contact if: you have any medication questions and your symptoms worsen Follow-up/Referrals: [place],[facility] [Primary Care Provider] - Diet: Regular Addtl Attending Provider Instructions: SPECIAL CARE INSTRUCTIONS: 1. Follow through with your scheduled aftercare appointments. If unable to keep an appointment, please call to reschedule. 2. Take your medication only as prescribed. Medication should not be changed or stopped without the approval of your doctor. In the event of worsening symptoms or concerns about side effects, contact your doctor immediately. 3. Utilize new healthy coping skills, anger management skills, and stress management skills learned during your hospitalization. Journal feelings and process them with a support person. Identify stressors or situations that may result in relapse, deterioration or inappropriate behaviors and develop a plan to deal with those issues. 4. If your coping skills are ineffective and you are in crisis, contact your outpatient providers for direction. If unable to reach your providers, please call the CAN HELP LINE AT or go to the closest Emergency Room. 5. Avoid alcohol and un-prescribed drugs. 6. You have been provided with the Mental Health Advance Directives Pamphlet for your review. AFTERCARE APPOINTMENTS: * Please call your insurance company prior to your scheduled appointment to confirm your aftercare providers are covered. Take your insurance information to your appointments. WHO TO CALL AND WHEN: Medical Emergencies: For questions or emergencies related to your hospital stay, please contact the Inpatient Behavioral Health Unit at [phone]. A back tacker is on-call 15/12 for the Behavioral Health Unit for emergencies At any time you feel your situation is an emergency, you may also call 911 immediately. Your Discharge Instructions noted above were prepared by provider Jayne Douglas PA-C. Pending Studies at Discharge: No Stand-Alone Forms: My [employer], Smoking Cessation, Suicide Prevention Resources Medications and DC Order Prescriptions: New escitalopram oxalate 10 mg Tablet 10 mg PO QAM 30 Days Qty: 30 RF: 0 No Action No Known Home Medications RF: 0 Discharge Orders: Discharge Order (Routine); Ordered 06/13/19 Ordered By: Jayne Douglas Admission Data Admit Date/Time: 06/10/19 20:58 Attending Provider: Tesha Messina Admit Provider: Tesha Messina Primary Care Provider: [place] Other Interventions: Discharge Summary Assessment (RN) Last Done: 06/13/19 10:09 PSY Interdisciplinary Discharge Planning Last Done: 06/13/19 10:19 Coding Level of Care Code 83367 D/C day mgmt > 30 min Diagnoses Depression F33.1 Active/Remission status: currently active Depression Type: major depressive disorder Major depression episode severity: moderate Major depression recurrence: recurrent
[2019-06-13] MEDS: ESCITALOPRAM OXALATE 10 MG TAB PO SCH (09:38)
== END 2019-06-13 11:30 | disposition home or self-care (01) | DRG 885 ==
LOC: ED 15:31 → 3S 20:43